=== PATIENT | male | born 1945 | race African-American/Black ===

== ENCOUNTER 2019-10-08 10:13 | Inpatient (IN) | payer OTHER ==
[~2019-10-08] VITALS: Ht 182.9 cm; Wt 81.9 kg
[~2019-10-08 10:13] MED LIST: ACET325T21 PO; AMLO5TAB10 PO; BISA10SU55 RC; CETI10TA16 PO; DOCU-109 PO; DONE10TA7 PO; HYDR-2761 PO; LISI-334 PO; MAGN24003 PO; MAGN296S68 PO; METH57CR17 TP; MULT-496 PO; NICO1PAT21 TP; POLY2500 PO; RISP0.5T10 PO; SERT25TA PO
--- NOTE | 2019-10-08 10:30 | NUR ---
Patient was discharged from the hospital and readmitted to inpatient hospice with vitas. Will continue to monitor.
[2019-10-08] MEDS ORDERED: ACETAMINOPHEN 650 MG SUPP.RECT. PR PRN (10:45)
[2019-10-08] MEDS ORDERED: MORPHINE SULFATE 2 MG/ML VIAL. IV PRN (10:45)
[2019-10-08] MEDS ORDERED: BISACODYL 10 MG SUPP.RECT. PR PRN (10:45)
[2019-10-08] MEDS: SCOPOLAMINE 1.5MG PATCH. TD SCH (11:00)
[2019-10-08] MEDS ORDERED: NALOXONE 0.4 MG/ML VIAL. IV PRN (11:30)
[2019-10-08] MEDS: IV NORMAL SALINE 1000ML BAG 1,000 ML IV SCH (11:44)
[2019-10-08] MEDS: MORPHINE SULFATE 30 ML IV PRN (12:23)
[2019-10-08 19:00] VITALS: BP 118/80
[2019-10-09] MEDS: MORPHINE SULFATE 30 ML IV PRN ×3 (01:41→21:45)
[2019-10-09 07:00] VITALS: BP 150/78
[2019-10-09] MEDS: SCOPOLAMINE 1.5MG PATCH. TD SCH (11:32)
[2019-10-09] MEDS: IV NORMAL SALINE 1000ML BAG 1,000 ML IV SCH (11:32)
--- NOTE | 2019-10-09 11:44 | NUR ---
Received verbal order from Dr. Coles to increase patients Morphine drip from 2mg/hr to 4mg/hr.
[2019-10-09 19:00] VITALS: BP 147/73
[2019-10-10] MEDS: MORPHINE SULFATE 30 ML IV PRN ×4 (05:16→23:50)
[2019-10-10 07:00] VITALS: BP 114/69
[2019-10-10] MEDS: IV NORMAL SALINE 1000ML BAG 1,000 ML IV SCH (11:17)
--- NOTE | 2019-10-10 11:42 | PN ---
DATE: 10/10/2019 SUBJECTIVE: The patient was admitted to inpatient hospice as he continued to be encephalopathic. Abdomen is markedly distended with severe constipation versus paralytic ileus that has not responded to multiple modalities of treatment. He is now on continuous infusion of morphine as well as Ativan. PHYSICAL EXAMINATION: GENERAL: When I saw him this morning, he was resting slightly propped up in bed, in no apparent respiratory distress. No pallor, jaundice, cyanosis or thyromegaly. No jugular venous distention. No limb edema. VITAL SIGNS: His heart rate was 96, blood pressure was 114/69, temperature 99.7, respiratory rate was 16, and oxygen saturation was 92% on 2.5 liters of oxygen by nasal cannula. Rest of exam is stable. He does have an NG tube to intermittent suction. His intake and output are incompletely recorded. LABORATORY DATA: No lab works available. ASSESSMENT: 1. Encephalopathy, multifactorial. 2. Paralytic ileus versus bowel obstruction versus severe constipation. 3. Other medical problems include: A. Advanced Alzheimer's disease. B. Chronic obstructive pulmonary disease. C. Hypertension. PLAN: Continue with comfort care. Continue with morphine and Ativan. Continue with oxygen. TANNA MONTANO MD DR: BRITTANIE/hedy JOB#: [id number] / [id number]
--- NOTE | 2019-10-10 12:38 | NUR ---
Patient has increase in gasping noises, received new order from Dr. Coles to increase Morphine to 5mg/hr.
[2019-10-10] MEDS: ATROPINE 1% OPHTH SOLUTION 5ML BOTTLE. SL PRN ×2 (14:27→16:36)
[2019-10-10 19:00] VITALS: BP 120/71
[2019-10-11] MEDS: MORPHINE SULFATE 30 ML IV PRN ×4 (05:54→23:05)
[2019-10-11 07:00] VITALS: BP 115/75
[2019-10-11] MEDS: SCOPOLAMINE 1.5MG PATCH. TD SCH (07:19)
[2019-10-11] MEDS: ATROPINE 1% OPHTH SOLUTION 5ML BOTTLE. SL PRN ×6 (07:19→22:34)
[2019-10-11] MEDS: IV NORMAL SALINE 1000ML BAG 1,000 ML IV SCH (11:29)
[2019-10-11] MEDS: GLYCOPYRROLATE 1 MG/5 ML VIAL. IV PRN ×2 (11:46→17:21)
--- NOTE | 2019-10-11 11:48 | PN ---
DATE: 10/11/2019 SUBJECTIVE: The patient continued to be in comfort care. He is encephalopathic; however, he continued to have excessive secretion. We did start him on scopolamine patch and also some atropine drops; however, he continued to have excessive drainage. I will add glycopyrrolate 1 mg IV every 4 hours and to continue with his morphine and Ativan. PHYSICAL EXAMINATION: GENERAL: When I saw him this morning, he was resting, propped up, clearly very audible secretions in upper airways. VITAL SIGNS: His heart rate was 114, blood pressure 115/75, temperature was 97.7, respiratory rate 20, and his oxygen saturation was 91% at 2.5 liters. The rest of clinical exam is stable. ASSESSMENT: 1. Encephalopathy, multifactorial. 2. Paralytic ileus versus bowel obstruction versus severe constipation and other medical problems include: A. Advanced Alzheimer disease. B. Chronic obstructive pulmonary disease. C. Hypertension. PLAN: Continue with comfort care. Continue with morphine, Ativan, and oxygen. He is on scopolamine and atropine drops. I added glycopyrrolate 1 mg IV every 4 hours. TANNA MONTANO MD DR: BRITTANIE/hedy JOB#: [id number] / [id number]
[2019-10-11 19:00] VITALS: BP 83/56
[2019-10-12] MEDS: IV NORMAL SALINE 1000ML BAG 1,000 ML IV SCH (01:39)
[2019-10-12] MEDS: ATROPINE 1% OPHTH SOLUTION 5ML BOTTLE. SL PRN (01:39)
[2019-10-12] MEDS: GLYCOPYRROLATE 1 MG/5 ML VIAL. IV PRN (01:39)
[2019-10-12] MEDS: MORPHINE SULFATE 30 ML IV PRN (04:10)
--- NOTE | 2019-10-12 06:27 | NUR ---
At 0525 RN went in to give PRN medications. RN found pt to have no chest rise, breath sounds, or apical heart beat. Pt notified counseling aide to verify. See Pronouncement of for details. Dr. Coles Notified. [facility] notified. Next of kin notified by Chalino and was advised that family would not be up to see him. Body cleaned, nelson, IV and NG tube removed per Chalino WILLIS.
--- NOTE | 2019-10-12 07:11 | NUR ---
Damaris contacted regarding bed pickup. Confirmation number [id number]
--- NOTE | 2019-10-12 07:33 | NUR ---
Pt was picked up by Rian with [facility] and taken down to the [facility] [place].
--- NOTE | 2019-10-19 15:51 | HP ---
ADMIT DATE: 10/09/2019 SUBJECTIVE: The patient was admitted yesterday to inpatient hospice for end of life care. He was originally admitted with severe constipation versus paralytic ileus. Despite multiple modalities of treatment patient really did not respond. Continued to have abdominal distention despite placing an NG tube to suction treating him with enema, Relistor, and mag citrate and the patient continued to be encephalopathic without much response in terms of improvement in his bowel movement. A decision was made to admit him to inpatient hospice. He is currently on IV morphine and Ativan. Continues to have an NG tube to intermittent. PHYSICAL EXAMINATION: GENERAL: When I saw him this morning, he seems to be somewhat in respiratory distress, pale, but no jaundice, cyanosis or thyromegaly. No jugular venous distention. No limb edema. VITAL SIGNS: Her heart rate was 93, blood pressure 150/78, temperature was 98.3, respiratory rate was 16, and oxygen saturation was 90% on 2.5 liters of oxygen. HEAD, EYES, EARS, NOSE AND THROAT: Showed normocephalic, atraumatic. NECK: Supple. HEART: Showed normal first and second heart sounds. No gallop, rub or murmur. CHEST: Clear to auscultation. No crepitation or rhonchi. ABDOMEN: Continued to be markedly distended with tympanitic percussion note. NEUROLOGIC: He continued to be encephalopathic. His intake and output incompletely recorded. LABORATORY DATA: He has no lab work done this morning. ASSESSMENT: Encephalopathy, multifactorial, ileus paralytic versus bowel obstruction, severe constipation, and other medical problems to include advanced Alzheimer's disease, chronic obstructive pulmonary disease, hypertension. PLAN: To continue with comfort care. Continue with morphine and increase the dose to 4 mg hourly. Continue with Ativan. Continue with oxygen supplementation. TANNA MONTANO MD DR: BRITTANIE/hedy JOB#: [id number] / [id number]
--- NOTE | 2019-11-09 12:43 | DS ---
DATE OF DISCHARGE: 10/12/2019 SUMMARY HOSPITAL COURSE: The patient was admitted originally to [facility] as a transfer from [facility] with severe constipation versus paralytic ileus. We treated him with NG tube to intermittent suction without really much improvement. The patient was extremely encephalopathic and developed acute hypoxic respiratory failure, likely due to aspiration pneumonia and a decision was made to discharge him to inpatient hospice care where he was continued on comfort care in the form of morphine and Ativan. His condition has gradually deteriorated and on 10/12/2019 around 7:00 p.m., the patient was noted to have no spontaneous breathing, no audible heart sounds, no palpable pulsation, was pronounced . CAUSE OF : 1. Acute cardiopulmonary arrest. 2. Acute on chronic hypoxic respiratory failure. 3. Aspiration pneumonia. 4. Paralytic ileus with resultant aspiration pneumonia. TANNA MONTANO MD DR: BRITTANIE/hedy JOB#: [id number] / [id number]
== END 2019-10-12 07:34 | disposition expired | DRG 71 ==
LOC: 4 NORTH 10:13
PROVIDERS: ADMIT Internal Medicine; ATTEND Internal Medicine
DX: G93.40 Encephalopathy, unspecified (principal); K56.0 Paralytic ileus; K56.609 Unspecified intestinal obstruction, unspecified as to partial versus complete obstruction; K59.00 Constipation, unspecified; I10 Essential (primary) hypertension; J44.9 Chronic obstructive pulmonary disease, unspecified; Z51.5 Encounter for palliative care; G30.9 Alzheimer's disease, unspecified; F02.80 Dementia in other diseases classified elsewhere, unspecified severity, without behavioral disturbance, psychotic disturbance, mood disturbance, and anxiety
CPT/HCPCS: J2060; J2270; J3490; J7030; G0378